=== PATIENT | female | born 1995 | race African-American/Black ===

== ENCOUNTER 2022-04-10 23:05 | Emergency (ER) | payer OTHER ==
[~2022-04-10] VITALS: Ht 170.2 cm; Wt 90.7 kg
[2022-04-10 23:05] VITALS: BP 120/88
[2022-04-10] MEDS ORDERED: LORA-476 PO (23:56)
--- NOTE | 2022-04-10 23:56 | NUR ---
SEEN AND EXAMINED BY JODIE, WITH ORDERS, CARRIED OUT
--- NOTE | 2022-04-11 00:05 | NUR ---
PATIENT ELOPED FROM FACILITY. DISCHARGE INSTRUCTIONS NOT GIVEN TO PATIENT. DR. NIXON NOTIFIED.
[2022-04-11] MEDS: LORazepam 1 MG TAB PO ONE (00:07)
== END 2022-04-11 00:05 | disposition left against medical advice (07) ==
LOC: MED 23:05
DX: F41.9 Anxiety disorder, unspecified (principal); Z79.899 Other long term (current) drug therapy
CPT/HCPCS: 99283